=== PATIENT | male | born 1955 | race Caucasian/White ===

== ENCOUNTER 2023-06-10 09:07 | Emergency (ER) | payer MEDICARE, SELFPAY ==
--- NOTE | 2023-06-10 09:21 | ED.GENMED ---
Addendum entered and electronically signed by Silvestre Alejandro, DO 06/10/23 12:02:
dw family
pcp cm ortiz NP
[facility]
call to PCP to update
I pronounced/certified
Addendum entered and electronically signed by Silvestre Alejandro, DO 06/10/23 10:45:
Correction time of 9:15 AM
Original Note:
History of Present Illness
General
Chief Complaint: CODE
Source: ambulance crew
Exam Limitations: clinical condition
Time Seen by Provider: 06/10/23 09:12
Nursing documentation reviewed up to this point in time: agreed with
History of Present Illness
History of Present Illness:
67-year-old male prehospital STEMI alert chest pain for about an hour, I was in touch with EMS numerous times he went into cardiac arrest presented in cardiac arrest essentially on arrival
Was treated with ACLS protocol had a Guru LT placed by EMS but was intubated here by PA, time of 945
Past History
Past History
ED Past Medical History: Other (Neurologic issue)
Social History
Tobacco: Other
Alcohol: Other
Drug: Other
Personal: Other
Living: other
Employment: Other
Family History
Family History: Unable to obtain
Review of Systems
Review of Systems
Unable to obtain full review of systems at this time due to: intubated
Other source history: ambulance crew
All Other Systems: Not applicable
Phy Exam
Physical Exam
Physical Exam:
Physical Exam
General: Intubated apneic male
Neck: Supraglottic airway
Heart: No pulse
Lungs: No spontaneous respite
Abdomen: Soft
Neuro: 3t
Skin: no rash
Psychiatric: Unable to assess
Extremities: Sign
Procedures
Intubations
Procedure completed by: Alcides Maza
Method of Intubation: glidescope
Tube size (cm): 7.5
Placement confirmed by: auscutation
Intubation complications: no complications
MDM/Problems Addressed
Differential Diagnosis Includes:
DC with subsequent VF arrest cardiac arrest
*EKG
Interpreted by ED Provider?: Yes
Interpretation: abnormal
Comparison EKG: no comparison EKG present
Heart Rate: 70
Rate: normal
Rhythm: sinus
Ischemia: ST elevation
*[employer] Interpretation
Rate: other
*Critical Care Note
Total Time (30-74mins, 75-104mins- exclusive of procedures): 15
Update Note
Update Note:
Update, despite maximal resuscitation efforts by EMS patient suffered cardiac
Time of 945 update family medical scribe
945 updated condolences provided, patient had some arm pain and nausea prior to calling 911
me called
body released
ED Attending Note
-
Portions of this chart may have been created with voice recognition software.� Occasional wrong word or��sound alike� substitutions may have occurred due to the inherent limitations of voice recognition software.
Discharge Plan
Departure
Patient Disposition:
Date of Disposition: 06/10/23
Time of Disposition: 09:24
Patient with high blood pressure during this ER visit?: No
Condition: Serious
Discharge Problem:
Cardiac arrest with ventricular fibrillation
--- NOTE | 2023-06-10 09:50 | EDRN ---
Called [facility], awaiting contact information of pt's (next of kin).
== END 2023-06-10 12:52 | disposition expired ==
LOC: EMR 09:07
PROVIDERS: EMERGENCY PHYSICIAN Emergency Medicine
DX: I46.9 Cardiac arrest, cause unspecified (principal); I49.01 Ventricular fibrillation
CPT/HCPCS: 99282; 31500